=== PATIENT | male | born 1970 | race Caucasian/White ===

== ENCOUNTER → 2016-12-19 | Outpatient (REF) | payer MEDICARE, OTHER ==
[~2016-12-19] MED LIST: /TAMS4CA; BENI20TA11; HYDR25TA6; VICO5TAB
== END ==
LOC: M LAB REF 13:16
PROVIDERS: ATTEND Internal Medicine Nephrology
DX: R80.9 Proteinuria, unspecified (principal)

== ENCOUNTER → 2017-07-01 | Outpatient (REF) | payer MEDICARE, OTHER ==
[2017-07-01 14:07] LABS: CREATININE,RANDOM URINE 33.2 MG/DL
[2017-07-01 14:07] LABS: TOTAL PROTEIN,RANDOM URINE 31.1 MG/DL (0.0-12.0)
== END ==
LOC: M LAB REF 12:55
DX: R80.9 Proteinuria, unspecified (principal)
CPT/HCPCS: 82570

== ENCOUNTER → 2017-11-11 | Outpatient (CLI) | payer MEDICARE, BC, OTHER ==
[2017-11-11 14:13] LABS: ESTIMATED AVERAGE GLUCOSE 103 MG/DL (60-110); HEMOGLOBIN A1c 5.2 %
[2017-11-11 14:21] LABS: ALBUMIN 3.5 GM/DL (3.2-5.2); ALBUMIN/GLOBULIN RATIO 1.09 (1.00-1.93); ALKALINE PHOSPHATASE 69 U/L (45-117); ALT/SGPT 44 U/L (12-78); ANION GAP 6 MEQ/L (8-16); AST/SGOT 34 U/L (7-37); BILIRUBIN,TOTAL 0.7 MG/DL (0.2-1.0); BLOOD UREA NITROGEN 13 MG/DL (7-18); CALCIUM LEVEL 8.9 MG/DL (8.5-10.1); CARBON DIOXIDE LEVEL 31 MEQ/L (21-32); CHLORIDE LEVEL 106 MEQ/L (98-107); CHOLESTEROL LEVEL 181 MG/DL (<200); CHOLESTEROL RISK RATIO 3.067 (<5); CREATININE FOR GFR 0.86 MG/DL (0.70-1.30); GLOMERULAR FILTRATION RATE > 60.0 (>60); GLUCOSE, FASTING 91 MG/DL (70-100); HDL CHOLESTEROL 59 MG/DL (>40); LDL CHOLESTEROL 96.8 MG/DL (<100); NON-HDL-C 122 MG/DL; POTASSIUM SERUM 4.8 MEQ/L (3.5-5.1); SODIUM LEVEL 143 MEQ/L (136-145); TOTAL PROTEIN 6.7 GM/DL (6.4-8.2); TRIGLYCERIDES LEVEL 126 MG/DL (<150)
[2017-11-11 15:09] LABS: CREATININE, URINE 57.9 MG/DL; MAU/CREAT RATIO 856.6 MCG/MG (0.0-30.0)
== END ==
LOC: M SMT 08:52
DX: E11.9 Type 2 diabetes mellitus without complications (principal); E78.2 Mixed hyperlipidemia; R80.1 Persistent proteinuria, unspecified
CPT/HCPCS: 80053

== ENCOUNTER → 2017-12-18 | Outpatient (CLI) | payer MEDICARE, BC, OTHER | LOC: M RAD 09:51 | DX: I72.1 Aneurysm of artery of upper extremity (principal); M85.432 Solitary bone cyst, left ulna and radius | CPT/HCPCS: 93931 ==

== ENCOUNTER → 2018-01-06 | Outpatient (REF) | payer MEDICARE, BC, OTHER ==
[2018-01-06 13:38] LABS: TOTAL PROTEIN,RANDOM URINE 26.4 MG/DL (0.0-12.0)
== END ==
LOC: M LAB REF 13:09
DX: R80.9 Proteinuria, unspecified (principal)
CPT/HCPCS: 84156

== ENCOUNTER → 2018-05-04 | Outpatient (CLI) | payer MEDICARE, BC, OTHER ==
[2018-05-04 14:13] LABS: HEMATOCRIT 45.4 % (42.0-52.0); HEMOGLOBIN 15.4 g/dl (13.5-17.5); MEAN CORPUSCULAR HEMOGLOBIN 30.1 pg (27.0-33.0); MEAN CORPUSCULAR HGB CONC 33.9 g/dl (32.0-36.5); MEAN CORPUSCULAR VOLUME 88.8 fl (80.0-96.0); PLATELET COUNT, AUTOMATED 286 10^3/uL (150-450); RED BLOOD COUNT 5.11 10^6/uL (4.30-6.10); RED CELL DISTRIBUTION WIDTH 11.9 % (11.5-14.5); WHITE BLOOD COUNT 6.6 10^3/uL (4.0-10.0)
[2018-05-04 14:35] LABS: ALBUMIN/GLOBULIN RATIO 1.33 (1.00-1.93); ALKALINE PHOSPHATASE 67 U/L (45-117); ALT/SGPT 62 U/L (12-78); ANION GAP 6 MEQ/L (8-16); AST/SGOT 38 U/L (7-37); BILIRUBIN,TOTAL 0.7 MG/DL (0.2-1.0); BLOOD UREA NITROGEN 23 MG/DL (7-18); CALCIUM LEVEL 9.3 MG/DL (8.5-10.1); CARBON DIOXIDE LEVEL 28 MEQ/L (21-32); CHLORIDE LEVEL 104 MEQ/L (98-107); CREATININE FOR GFR 0.96 MG/DL (0.70-1.30); FERRITIN 164 NG/ML (26-388); GLOMERULAR FILTRATION RATE > 60.0 (>60); GLUCOSE, FASTING 94 MG/DL (70-100); POTASSIUM SERUM 4.7 MEQ/L (3.5-5.1); SODIUM LEVEL 138 MEQ/L (136-145)
[2018-05-04 14:37] LABS: TOTAL 25(OH) VITAMIN D 45.7 NG/ML (30.0-100.0); VITAMIN B12 LEVEL > 2000 PG/ML (247-911)
[2018-05-04 15:45] LABS: MAU/CREAT RATIO 420.1 MCG/MG (0.0-30.0)
[2018-05-04 19:23] LABS: ESTIMATED AVERAGE GLUCOSE 91 MG/DL (60-110); HEMOGLOBIN A1c 4.8 %
== END ==
LOC: M SMT 08:36
DX: Z98.84 Bariatric surgery status (principal); R80.1 Persistent proteinuria, unspecified; E11.9 Type 2 diabetes mellitus without complications
CPT/HCPCS: 82607

== ENCOUNTER → 2018-07-07 | Outpatient (REF) | payer MEDICARE, OTHER | LOC: M LAB REF 12:58 | PROVIDERS: ATTEND Internal Medicine Nephrology | DX: R80.9 Proteinuria, unspecified (principal) ==

== ENCOUNTER → 2019-01-06 | Outpatient (REF) | payer MEDICARE, OTHER ==
[~2019-01-06] MED LIST changes: -/TAMS4CA; +FLOM0.4C39
== END ==
LOC: M LAB REF 13:07
PROVIDERS: ATTEND Internal Medicine Nephrology
DX: R80.9 Proteinuria, unspecified (principal)

== ENCOUNTER → 2019-05-04 | Outpatient (REF) | payer MEDICARE, OTHER ==
[2019-05-04 17:07] LABS: HEMOGLOBIN 15.4 g/dl (13.5-17.5); MEAN CORPUSCULAR HEMOGLOBIN 30.9 pg (27.0-33.0); MEAN CORPUSCULAR HGB CONC 33.5 g/dl (32.0-36.5); MEAN CORPUSCULAR VOLUME 92.4 fl (80.0-96.0); PLATELET COUNT, AUTOMATED 299 10^3/uL (150-450); RED BLOOD COUNT 4.98 10^6/uL (4.30-6.10); WHITE BLOOD COUNT 6.1 10^3/uL (4.0-10.0)
[2019-05-04 17:23] LABS: ALBUMIN 3.8 GM/DL (3.2-5.2); ALT/SGPT 40 U/L (12-78); BILIRUBIN,TOTAL 0.6 MG/DL (0.2-1.0); BLOOD UREA NITROGEN 18 MG/DL (7-18); CALCIUM LEVEL 8.9 MG/DL (8.5-10.1); CARBON DIOXIDE LEVEL 29 MEQ/L (21-32); CHLORIDE LEVEL 103 MEQ/L (98-107); CHOLESTEROL LEVEL 226 MG/DL (<200); CHOLESTEROL RISK RATIO 3.183 (<5); CREATININE FOR GFR 0.96 MG/DL (0.70-1.30); FERRITIN 100 NG/ML (26-388); GLOMERULAR FILTRATION RATE > 60.0 (>56); GLUCOSE, FASTING 81 MG/DL (70-100); HDL CHOLESTEROL 71 MG/DL (>40); LDL CHOLESTEROL 106 MG/DL (<100); NON-HDL-C 155 MG/DL; POTASSIUM SERUM 5.2 MEQ/L (3.5-5.1); SODIUM LEVEL 138 MEQ/L (136-145); TRIGLYCERIDES LEVEL 243 MG/DL (<150)
[2019-05-04 17:24] LABS: TOTAL 25(OH) VITAMIN D 27.7 NG/ML (30.0-100.0); VITAMIN B12 LEVEL > 2000 PG/ML (247-911)
[2019-05-04 17:29] LABS: HEMOGLOBIN A1c 5.1 %
[2019-05-04 17:47] LABS: CREATININE, URINE 17.4 MG/DL; MAU/CREAT RATIO 1459.7 MCG/MG (0.0-30.0)
== END ==
LOC: M SFHCADAM 13:13
PROVIDERS: ATTEND Family Medicine
DX: E11.9 Type 2 diabetes mellitus without complications (principal); E78.2 Mixed hyperlipidemia; R80.1 Persistent proteinuria, unspecified; D51.9 Vitamin B12 deficiency anemia, unspecified; Z98.84 Bariatric surgery status
CPT/HCPCS: 80053; 80061; 82043; 82306; 82607; 82728; 83036; 85027; G0463

== ENCOUNTER → 2020-01-07 | Outpatient (REF) | payer MEDICARE, OTHER | LOC: M LAB REF 17:46 | PROVIDERS: ATTEND Internal Medicine Nephrology | DX: R80.9 Proteinuria, unspecified (principal) ==

== ENCOUNTER 2020-04-21 10:03 | Emergency (ER) | payer OTHER, MEDICARE, BC ==
[~2020-04-21] VITALS: Ht 185.4 cm; Wt 97.7 kg
[2020-04-21] MEDS ORDERED: LIDOCAINE W/EPINEPHRINE 1% 20ML VIAL SC ONE (10:45)
[2020-04-21] MEDS ORDERED: BOOSTRIX/ADACEL VACCINE (DIPHTH/PERTUSS/ACELL/TETANUS) 0.5ML SYR IM ONE (10:45)
[2020-04-21] MEDS ORDERED: DERMABOND TOPICAL SKIN ADHESIVE TOP ONE (10:45)
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
[2020-04-21] MEDS ORDERED: KETOROLAC 30 MG/ML 1ML VIAL IM ONE (12:15)
[2020-04-21] MEDS ORDERED: KETOROLAC 30 MG/ML 1ML VIAL IV ONE (12:30)
--- NOTE | 2020-04-21 13:08 | REP ---
INDICATION: pain COMPARISON: None. TECHNIQUE: Five views obtained. FINDINGS: Five views of the right knee demonstrate no evidence of acute fracture, dislocation, or intrinsic bone disease. IMPRESSION: No fracture or dislocation. <Electronically signed by Greg Ruff > 04/21/20 [id number]
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
[2020-04-21 13:44] VITALS: BP 175/91
== END 2020-04-21 13:41 | disposition home or self-care (01) ==
LOC: M ED 10:03
DX: S20.219A Contusion of unspecified front wall of thorax, initial encounter (principal); S01.511A Laceration without foreign body of lip, initial encounter; S51.812A Laceration without foreign body of left forearm, initial encounter; S80.811A Abrasion, right lower leg, initial encounter; S80.812A Abrasion, left lower leg, initial encounter; M79.601 Pain in right arm; V47.0XXA Car driver injured in collision with fixed or stationary object in nontraffic accident, initial encounter; M50.30 Other cervical disc degeneration, unspecified cervical region; K57.30 Diverticulosis of large intestine without perforation or abscess without bleeding; E11.9 Type 2 diabetes mellitus without complications; I10 Essential (primary) hypertension; E78.5 Hyperlipidemia, unspecified; G47.30 Sleep apnea, unspecified; Z98.84 Bariatric surgery status; Z91.041 Radiographic dye allergy status; Z79.899 Other long term (current) drug therapy
CPT/HCPCS: 12001; 12011; 70450; 71250; 72125; 73090; 73564; 74176; 80047; 90471; 90715; 96372; 96374; 99284; J1885

== ENCOUNTER → 2020-07-19 | Outpatient (REF) | payer MEDICARE, OTHER ==
[2020-07-19 18:01] LABS: HEMATOCRIT 46.8 % (42.0-52.0); HEMOGLOBIN 15.3 g/dl (13.5-17.5); MEAN CORPUSCULAR HEMOGLOBIN 29.3 pg (27.0-33.0); MEAN CORPUSCULAR HGB CONC 32.7 g/dl (32.0-36.5); MEAN CORPUSCULAR VOLUME 89.5 fl (80.0-96.0); PLATELET COUNT, AUTOMATED 343 10^3/uL (150-450); RED BLOOD COUNT 5.23 10^6/uL (4.30-6.10); WHITE BLOOD COUNT 7.4 10^3/uL (4.0-10.0)
[2020-07-19 18:09] LABS: ALT/SGPT 56 U/L (12-78); BILIRUBIN,TOTAL 0.5 MG/DL (0.2-1.0); BLOOD UREA NITROGEN 19 MG/DL (7-18); CALCIUM LEVEL 9.6 MG/DL (8.5-10.1); CARBON DIOXIDE LEVEL 29 MEQ/L (21-32); CHLORIDE LEVEL 104 MEQ/L (98-107); CHOLESTEROL LEVEL 210 MG/DL (<200); CHOLESTEROL RISK RATIO 3.387 (<5); CREATININE FOR GFR 0.94 MG/DL (0.70-1.30); FERRITIN 114 NG/ML (26-388); GLOMERULAR FILTRATION RATE > 60.0 (>56); GLUCOSE, FASTING 88 MG/DL (70-100); HDL CHOLESTEROL 62 MG/DL (>40); LDL CHOLESTEROL 110 MG/DL (<100); NON-HDL-C 148 MG/DL; POTASSIUM SERUM 5.1 MEQ/L (3.5-5.1); SODIUM LEVEL 139 MEQ/L (136-145); TOTAL PROTEIN 7.3 GM/DL (6.4-8.2); TRIGLYCERIDES LEVEL 188 MG/DL (<150)
[2020-07-19 18:18] LABS: TOTAL 25(OH) VITAMIN D 28.9 NG/ML (30.0-100.0); VITAMIN B12 LEVEL 1199 PG/ML (247-911)
[2020-07-19 18:37] LABS: HEMOGLOBIN A1c 5.2 %
[2020-07-19 19:05] LABS: CREATININE, URINE 36.2 MG/DL; MAU/CREAT RATIO 881.2 MCG/MG (0.0-30.0)
== END ==
LOC: M SFHCADAM 13:56
PROVIDERS: ATTEND Family Medicine
DX: Z98.84 Bariatric surgery status (principal); D51.9 Vitamin B12 deficiency anemia, unspecified; E11.9 Type 2 diabetes mellitus without complications; E78.2 Mixed hyperlipidemia; R80.1 Persistent proteinuria, unspecified

== ENCOUNTER → 2021-07-18 | Outpatient (REF) | payer MEDICARE, OTHER ==
[2021-07-18 13:05] LABS: HEMATOCRIT 44.6 % (42.0-52.0); HEMOGLOBIN 14.9 g/dl (13.5-17.5); MEAN CORPUSCULAR HEMOGLOBIN 30.2 pg (27.0-33.0); MEAN CORPUSCULAR HGB CONC 33.4 g/dl (32.0-36.5); MEAN CORPUSCULAR VOLUME 90.5 fl (80.0-96.0); PLATELET COUNT, AUTOMATED 267 10^3/uL (150-450); RED BLOOD COUNT 4.93 10^6/uL (4.30-6.10); WHITE BLOOD COUNT 6.8 10^3/uL (4.0-10.0)
[2021-07-18 14:57] LABS: ALT/SGPT 41 U/L (12-78); BILIRUBIN,TOTAL 0.5 MG/DL (0.2-1.0); BLOOD UREA NITROGEN 22 MG/DL (7-18); CALCIUM LEVEL 9.1 MG/DL (8.5-10.1); CARBON DIOXIDE LEVEL 29 MEQ/L (21-32); CHLORIDE LEVEL 108 MEQ/L (98-107); CHOLESTEROL LEVEL 208 MG/DL (<200); CHOLESTEROL RISK RATIO 3.851 (<5); CREATININE FOR GFR 0.97 MG/DL (0.70-1.30); FREE T4 0.91 NG/DL (0.76-1.46); GLOMERULAR FILTRATION RATE > 60.0 (>56); GLUCOSE, FASTING 93 MG/DL (70-100); HDL CHOLESTEROL 54 MG/DL (>40); LDL CHOLESTEROL 128 MG/DL (<100); NON-HDL-C 154 MG/DL; POTASSIUM SERUM 5.1 MEQ/L (3.5-5.1); SODIUM LEVEL 140 MEQ/L (136-145); TOTAL 25(OH) VITAMIN D 23.4 NG/ML (30.0-100.0); TRIGLYCERIDES LEVEL 132 MG/DL (<150); VITAMIN B12 LEVEL 1570 PG/ML (247-911)
[2021-07-18 15:27] LABS: HEMOGLOBIN A1c 5.2 %
[2021-07-18 15:44] LABS: MAU/CREAT RATIO 487.3 MCG/MG (0.0-30.0)
== END ==
LOC: M SFHCADAM 08:54
PROVIDERS: ATTEND Family Medicine
DX: R80.1 Persistent proteinuria, unspecified (principal); E11.9 Type 2 diabetes mellitus without complications; E78.2 Mixed hyperlipidemia; D51.9 Vitamin B12 deficiency anemia, unspecified; Z98.84 Bariatric surgery status; Z12.5 Encounter for screening for malignant neoplasm of prostate; Z79.899 Other long term (current) drug therapy

== ENCOUNTER → 2021-07-18 | Outpatient (CLI) | payer MEDICARE, OTHER | LOC: M ADAMS 09:04 | PROVIDERS: ATTEND Family Medicine | DX: M50.322 Other cervical disc degeneration at C5-C6 level (principal); M50.323 Other cervical disc degeneration at C6-C7 level ==

== ENCOUNTER 2021-12-20 00:33 | Emergency (ER) | payer MEDICARE, OTHER ==
[~2021-12-20] VITALS: Ht 185.4 cm; Wt 98.6 kg
[2021-12-20] MEDS ORDERED: LISI40TA4 PO (00:37)
[2021-12-20 00:51] LABS: BASO # 0.1 10^3/uL (0.0-0.2); BASO % 0.6 % (0.0-1.0); EOS # 0.3 10^3/uL (0.0-0.5); EOS % 3.4 % (0.0-3.0); HEMATOCRIT 44.3 % (42.0-52.0); HEMOGLOBIN 15.4 g/dl (13.5-17.5); LYMPH # 2.2 10^3/uL (1.5-5.0); MEAN CORPUSCULAR HEMOGLOBIN 31.4 pg (27.0-33.0); MEAN CORPUSCULAR HGB CONC 34.8 g/dl (32.0-36.5); MEAN CORPUSCULAR VOLUME 90.4 fl (80.0-96.0); MONO # 1.4 10^3/uL (0.0-0.8); NEUTROPHILS # 4.3 10^3/uL (1.5-8.5); NEUTROPHILS % 51.6 % (36.0-66.0); PLATELET COUNT, AUTOMATED 275 10^3/uL (150-450); WHITE BLOOD COUNT 8.3 10^3/uL (4.0-10.0)
[2021-12-20] MEDS ORDERED: DIGOXIN INJ 0.5 MG/2 ML AMP (J1160) IV ONE (01:10)
[2021-12-20] MEDS ORDERED: atenoloL 25 MG TAB PO ONE (01:20)
[2021-12-20 01:23] LABS: CK-MB VALUE MASS 1.5 NG/ML (<3.6); MB/CK RELATIVE INDEX 1.1 (< OR =4)
[2021-12-20 01:30] LABS: BLOOD UREA NITROGEN 19 MG/DL (7-18); CARBON DIOXIDE LEVEL 26 MEQ/L (21-32); CHLORIDE LEVEL 108 MEQ/L (98-107); CREATININE FOR GFR 0.89 MG/DL (0.70-1.30); FREE T4 0.97 NG/DL (0.76-1.46); GLOMERULAR FILTRATION RATE > 60.0 (>56); GLUCOSE, FASTING 94 MG/DL (70-100); POTASSIUM SERUM 4.1 MEQ/L (3.5-5.1); SODIUM LEVEL 143 MEQ/L (136-145)
[2021-12-20 01:48] VITALS: BP 133/70
[2021-12-20 01:54] LABS: MAGNESIUM LEVEL 2.2 MG/DL (1.8-2.4)
[2021-12-20] MEDS ORDERED: DIGOXIN 0.25 MG TAB PO ONE (03:00)
[2021-12-20 03:55] LABS: CK-MB VALUE MASS 1.3 NG/ML (<3.6); MB/CK RELATIVE INDEX 1.12 (< OR =4)
[2021-12-20] MEDS ORDERED: ATEN25TA PO (04:24)
[2021-12-20] MEDS ORDERED: ASPI-255 PO (04:24)
[2021-12-20 04:30] VITALS: BP 112/64
== END 2021-12-20 05:03 | disposition home or self-care (01) ==
LOC: M ED 00:33
DX: I48.91 Unspecified atrial fibrillation (principal); R94.31 Abnormal electrocardiogram [ECG] [EKG]; E11.9 Type 2 diabetes mellitus without complications; E78.5 Hyperlipidemia, unspecified; I10 Essential (primary) hypertension; F10.10 Alcohol abuse, uncomplicated; Z79.811 Long term (current) use of aromatase inhibitors; Z98.84 Bariatric surgery status; Z91.041 Radiographic dye allergy status; Z79.899 Other long term (current) drug therapy
CPT/HCPCS: 71045; 80048; 82550; 82553; 83735; 84439; 84443; 84484; 85025; 93005; 93041; 94760; 96374; 96375; 99291; 99292; J1160

== ENCOUNTER → 2022-01-23 | Outpatient (REF) | payer MEDICARE, BC, OTHER ==
[~2022-01-23] MED LIST changes: +ASPI-255 PO; +ATEN25TA PO; +LISI40TA4 PO
[2022-01-23 18:07] LABS: TOTAL PROTEIN,RANDOM URINE 112.1 MG/DL (0.0-12.0)
== END ==
LOC: M LAB REF 16:53
PROVIDERS: ATTEND Nurse Practitioner Family
DX: R80.9 Proteinuria, unspecified (principal)

== ENCOUNTER → 2022-05-16 | Outpatient (CLI) | payer MEDICARE, BC, OTHER ==
[2022-05-16 13:27] LABS: HEMATOCRIT 44.5 % (42.0-52.0); HEMOGLOBIN 14.6 g/dl (13.5-17.5); MEAN CORPUSCULAR HEMOGLOBIN 30.5 pg (27.0-33.0); MEAN CORPUSCULAR HGB CONC 32.8 g/dl (32.0-36.5); MEAN CORPUSCULAR VOLUME 93.1 fl (80.0-96.0); PLATELET COUNT, AUTOMATED 292 10^3/uL (150-450); RED BLOOD COUNT 4.78 10^6/uL (4.30-6.10); WHITE BLOOD COUNT 7.9 10^3/uL (4.0-10.0)
[2022-05-16 13:48] LABS: BLOOD UREA NITROGEN 16 MG/DL (9-23); CALCIUM LEVEL 9.4 MG/DL (8.5-10.1); CARBON DIOXIDE LEVEL 30 MMOL/L (20-31); CHLORIDE LEVEL 105 MMOL/L (98-107); CREATININE FOR GFR 0.94 MG/DL (0.70-1.30); GLOMERULAR FILTRATION RATE > 60.0 (>56); GLUCOSE, FASTING 96 MG/DL (60-100); POTASSIUM SERUM 5.2 MMOL/L (3.5-5.1); SODIUM LEVEL 139 MMOL/L (136-145)
== END ==
LOC: M PLALAB 10:43
PROVIDERS: ATTEND Internal Medicine Cardiovascular Disease
DX: I48.0 Paroxysmal atrial fibrillation (principal)

== ENCOUNTER 2022-06-05 01:22 | Emergency (ER) | payer MEDICARE, BC, OTHER ==
[~2022-06-05] VITALS: Ht 185.4 cm; Wt 102.2 kg
[2022-06-05 02:00] LABS: BASO % 0.3 % (0.0-1.0); EOS # 0.3 10^3/uL (0.0-0.5); EOS % 2.7 % (0.0-3.0); HEMATOCRIT 40.5 % (42.0-52.0); HEMOGLOBIN 13.4 g/dl (13.5-17.5); LYMPH % 21.4 % (24.0-44.0); MEAN CORPUSCULAR HEMOGLOBIN 30.3 pg (27.0-33.0); MEAN CORPUSCULAR HGB CONC 33.1 g/dl (32.0-36.5); MEAN CORPUSCULAR VOLUME 91.6 fl (80.0-96.0); MONO # 1.5 10^3/uL (0.0-0.8); MONO % 15.9 % (2.0-8.0); NEUTROPHILS # 5.5 10^3/uL (1.5-8.5); NEUTROPHILS % 59.5 % (36.0-66.0); PLATELET COUNT, AUTOMATED 230 10^3/uL (150-450); RED BLOOD COUNT 4.42 10^6/uL (4.30-6.10); WHITE BLOOD COUNT 9.3 10^3/uL (4.0-10.0)
[2022-06-05] MEDS ORDERED: GI COCKTAIL 50ML BTL(HYOSCYAMINE/MAALOX/LIDOCAINE VISCOUS)(1:3:1) PO ONE (02:05)
[2022-06-05 02:18] LABS: ERYTHROCYTE SEDIMENTATION RATE 12 mm/hr (0-20)
[2022-06-05 02:24] LABS: LIPASE 61 U/L (12-53)
[2022-06-05 02:26] LABS: ALBUMIN 3.5 G/DL (3.2-5.2); ALKALINE PHOSPHATASE 77 U/L (46-116); ALT/SGPT 23 U/L (7.0-40); AST/SGOT 33 U/L (<34); BILIRUBIN,DIRECT 0.1 MG/DL (<0.4); BILIRUBIN,TOTAL 0.4 MG/DL (0.3-1.2); BLOOD UREA NITROGEN 11 MG/DL (9-23); CALCIUM LEVEL 8.3 MG/DL (8.5-10.1); CARBON DIOXIDE LEVEL 27 MMOL/L (20-31); CHLORIDE LEVEL 105 MMOL/L (98-107); CK-MB VALUE MASS 3.3 NG/ML (<3.6); CPK CREATINE PHOSPHOKINASE 169 U/L (46-171); CREATININE FOR GFR 0.83 MG/DL (0.70-1.30); GLOMERULAR FILTRATION RATE > 60.0 (>56); GLUCOSE, FASTING 103 MG/DL (60-100); MB/CK RELATIVE INDEX 1.95 (< OR =4); SODIUM LEVEL 140 MMOL/L (136-145); TOTAL PROTEIN 6.4 G/DL (5.7-8.2)
[2022-06-05 02:28] LABS: THYROID STIMULATING HORMONE 1.966 uIU/ML (0.55-4.78)
[2022-06-05 04:00] VITALS: BP 148/94
[2022-06-05 04:02] LABS: CK-MB VALUE MASS 2.6 NG/ML (<3.6)
[2022-06-05 04:14] LABS: MB/CK RELATIVE INDEX 1.61 (< OR =4)
[2022-06-05] MEDS ORDERED: SUCRALFATE SUSP 1GM/10ML UD PO ONE (05:30)
[2022-06-05 06:39] LABS: CK-MB VALUE MASS 1.9 NG/ML (<3.6)
[2022-06-05 06:40] LABS: MB/CK RELATIVE INDEX 1.34 (< OR =4)
[2022-06-05] MEDS ORDERED: OMEP40CA4 PO (07:06)
[2022-06-05] MEDS ORDERED: COLCHICINE 0.6 MG TABLET PO ONE (07:25)
[2022-06-05] MEDS ORDERED: COLC0.6T47 PO (07:27)
== END 2022-06-05 08:13 | disposition home or self-care (01) ==
LOC: M ED 01:22
DX: R07.9 Chest pain, unspecified (principal); K21.9 Gastro-esophageal reflux disease without esophagitis; I25.2 Old myocardial infarction; E11.9 Type 2 diabetes mellitus without complications; E78.5 Hyperlipidemia, unspecified; F10.10 Alcohol abuse, uncomplicated; Z86.79 Personal history of other diseases of the circulatory system; Z91.041 Radiographic dye allergy status; Z79.82 Long term (current) use of aspirin; Z79.811 Long term (current) use of aromatase inhibitors; Z79.899 Other long term (current) drug therapy

== ENCOUNTER → 2022-06-17 | Outpatient (CLI) | payer MEDICARE, BC, OTHER ==
[~2022-06-17] MED LIST changes: +COLC0.6T47 PO; +OMEP40CA4 PO
== END ==
LOC: M WUC 10:28
PROVIDERS: ATTEND Physician Assistant
DX: R77.8 Other specified abnormalities of plasma proteins (principal)

== ENCOUNTER → 2022-08-06 | Outpatient (REF) | payer MEDICARE, OTHER ==
[~2022-08-06] MED LIST changes: +CEPH500C PO
[2022-08-06 13:19] LABS: ALBUMIN 3.8 G/DL (3.2-5.2); ALKALINE PHOSPHATASE 79 U/L (46-116); ALT/SGPT 22 U/L (7.0-40); AST/SGOT 27 U/L (<34); BILIRUBIN,TOTAL 0.6 MG/DL (0.3-1.2); BLOOD UREA NITROGEN 19 MG/DL (9-23); CALCIUM LEVEL 8.8 MG/DL (8.5-10.1); CARBON DIOXIDE LEVEL 31 MMOL/L (20-31); CHLORIDE LEVEL 104 MMOL/L (98-107); CHOLESTEROL LEVEL 201 MG/DL (<200); CHOLESTEROL RISK RATIO 3.35 (<5); CREATININE FOR GFR 0.81 MG/DL (0.70-1.30); GLOMERULAR FILTRATION RATE > 60.0 (>56); GLUCOSE, FASTING 94 MG/DL (60-100); LDL CHOLESTEROL 113.6 MG/DL (<100); NON-HDL-C 141 MG/DL; SODIUM LEVEL 139 MMOL/L (136-145); TOTAL PROTEIN 6.9 G/DL (5.7-8.2); TRIGLYCERIDES LEVEL 137 MG/DL (<150)
[2022-08-06 13:23] LABS: FREE T4 0.97 NG/DL (0.89-1.76); VITAMIN B12 LEVEL 603 PG/ML (211-911)
[2022-08-06 13:25] LABS: THYROID STIMULATING HORMONE 2.115 uIU/ML (0.55-4.78); TOTAL 25(OH) VITAMIN D 23.1 NG/ML (20.0-100.0)
[2022-08-06 13:26] LABS: FERRITIN 25.2 NG/ML (10.5-307.3)
[2022-08-06 13:32] LABS: HEMOGLOBIN A1c 4.9 % (4.0-6.0)
[2022-08-06 13:35] LABS: CREATININE, URINE 111.9 MG/DL; MAU/CREAT RATIO 287.7 MCG/MG (0.0-30.0)
[2022-08-06 13:36] LABS: FOLATE 21.94 NG/ML (>5.4)
[2022-08-06 19:43] LABS: BASO % 0.6 % (0.0-1.0); EOS # 0.3 10^3/uL (0.0-0.5); EOS % 3.6 % (0.0-3.0); HEMATOCRIT 42.9 % (42.0-52.0); HEMOGLOBIN 14.3 g/dl (13.5-17.5); LYMPH # 1.9 10^3/uL (1.5-5.0); LYMPH % 26.7 % (24.0-44.0); MEAN CORPUSCULAR HGB CONC 33.3 g/dl (32.0-36.5); MEAN CORPUSCULAR VOLUME 90.1 fl (80.0-96.0); MONO # 1.1 10^3/uL (0.0-0.8); MONO % 15.1 % (2.0-8.0); NEUTROPHILS # 3.9 10^3/uL (1.5-8.5); NEUTROPHILS % 53.7 % (36.0-66.0); PLATELET COUNT, AUTOMATED 260 10^3/uL (150-450); RED BLOOD COUNT 4.76 10^6/uL (4.30-6.10); WHITE BLOOD COUNT 7.2 10^3/uL (4.0-10.0)
== END ==
LOC: M SFHCADAM 08:20
PROVIDERS: ATTEND Family Medicine
DX: I48.91 Unspecified atrial fibrillation (principal); D51.9 Vitamin B12 deficiency anemia, unspecified; Z98.84 Bariatric surgery status; E78.2 Mixed hyperlipidemia; E11.9 Type 2 diabetes mellitus without complications; Z12.5 Encounter for screening for malignant neoplasm of prostate; I10 Essential (primary) hypertension

== ENCOUNTER 2022-09-28 15:22 | Emergency (ER) | payer MEDICARE, BC, OTHER ==
[~2022-09-28] VITALS: Ht 185.4 cm; Wt 98.2 kg
[~2022-09-28 15:22] MED LIST changes: -CEPH500C PO
[2022-09-28] MEDS ORDERED: CEPHALEXIN 500 MG CAP PO ONE (16:15)
[2022-09-28] MEDS ORDERED: LIDOCAINE 2% MDV 20ML VIAL SC ONE (16:15)
[2022-09-28] MEDS ORDERED: CEPH500C PO (17:17)
[2022-09-28 17:45] VITALS: BP 114/83
== END 2022-09-28 17:58 | disposition home or self-care (01) ==
LOC: EDBD 15:22 → M ED 15:22
DX: S91.312A Laceration without foreign body, left foot, initial encounter (principal); W29.3XXA Contact with powered garden and outdoor hand tools and machinery, initial encounter; I10 Essential (primary) hypertension; F17.200 Nicotine dependence, unspecified, uncomplicated; Z86.79 Personal history of other diseases of the circulatory system; Z79.01 Long term (current) use of anticoagulants; Z91.040 Latex allergy status; Z91.013 Allergy to seafood; Z79.82 Long term (current) use of aspirin; Z79.811 Long term (current) use of aromatase inhibitors; Z79.83 Long term (current) use of bisphosphonates

== ENCOUNTER → 2022-11-15 | Outpatient (CLI) | payer MEDICARE, BC, OTHER ==
[~2022-11-15] MED LIST changes: +AMLO2.5T3 PO; +CEPH500C PO; +CYAN500T14 PO; +ELIQ5TAB PO; +VITA-243 PO; +VITA100093 PO; +VITMTA PO
== END ==
LOC: M SLEEP 20:00
PROVIDERS: ATTEND Nurse Practitioner Adult Health
DX: G47.33 Obstructive sleep apnea (adult) (pediatric) (principal)

== ENCOUNTER 2022-11-18 07:32 | Day surgery (SDC) | payer MEDICARE, BC, OTHER ==
[~2022-11-18] VITALS: Ht 185.4 cm; Wt 98.7 kg
[~2022-11-18 07:32] MED LIST changes: +NS 1,000 ML IV ONE
[2022-11-18] MEDS ORDERED: propofoL 200 MG/20 ML VIAL As Ordered ONE (09:20)
[2022-11-18 10:04] VITALS: BP 145/79
== END 2022-11-18 10:13 | disposition home or self-care (01) ==
LOC: M OPP 07:32
PROVIDERS: ATTEND Internal Medicine Gastroenterology
DX: Z12.11 Encounter for screening for malignant neoplasm of colon (principal); D12.6 Benign neoplasm of colon, unspecified; K64.4 Residual hemorrhoidal skin tags; K64.8 Other hemorrhoids; K57.30 Diverticulosis of large intestine without perforation or abscess without bleeding; Z79.01 Long term (current) use of anticoagulants; Z79.899 Other long term (current) drug therapy; Z91.013 Allergy to seafood; Z91.041 Radiographic dye allergy status

== ENCOUNTER → 2023-02-11 | Outpatient (CLI) | payer MEDICARE, BC, OTHER ==
[~2023-02-11] MED LIST changes: -NS 1,000 ML IV ONE
== END ==
LOC: M RAD 07:14
PROVIDERS: ATTEND Nurse Practitioner Family
DX: N18.2 Chronic kidney disease, stage 2 (mild) (principal)

== ENCOUNTER → 2023-08-25 | Outpatient (REF) | payer MEDICARE, OTHER ==
[2023-08-25 13:13] LABS: BASO % 0.4 % (0.0-1.0); EOS # 0.2 10^3/uL (0.0-0.5); EOS % 2.7 % (0.0-3.0); HEMATOCRIT 41.9 % (42.0-52.0); HEMOGLOBIN 14.3 g/dl (13.5-17.5); LYMPH # 1.9 10^3/uL (1.5-5.0); LYMPH % 28.1 % (24.0-44.0); MEAN CORPUSCULAR HEMOGLOBIN 31.1 pg (27.0-33.0); MEAN CORPUSCULAR HGB CONC 34.1 g/dl (32.0-36.5); MEAN CORPUSCULAR VOLUME 91.1 fl (80.0-96.0); MONO # 0.9 10^3/uL (0.0-0.8); MONO % 13.8 % (2.0-8.0); NEUTROPHILS # 3.7 10^3/uL (1.5-8.5); NEUTROPHILS % 54.6 % (36.0-66.0); PLATELET COUNT, AUTOMATED 240 10^3/uL (150-450); WHITE BLOOD COUNT 6.7 10^3/uL (4.0-10.0)
[2023-08-25 13:28] LABS: HEMOGLOBIN A1c 5.3 % (4.0-6.0)
[2023-08-25 13:49] LABS: TOTAL 25(OH) VITAMIN D 28.8 NG/ML (20.0-100.0)
[2023-08-25 13:50] LABS: FERRITIN 23.1 NG/ML (10.5-307.3)
[2023-08-25 14:00] LABS: ALBUMIN 3.6 G/DL (3.2-5.2); ALKALINE PHOSPHATASE 61 U/L (46-116); ALT/SGPT 29 U/L (7.0-40); AST/SGOT 22 U/L (<34); BILIRUBIN,TOTAL 0.5 MG/DL (0.3-1.2); BLOOD UREA NITROGEN 20 MG/DL (9-23); CALCIUM LEVEL 8.9 MG/DL (8.5-10.1); CARBON DIOXIDE LEVEL 27 MMOL/L (20-31); CHLORIDE LEVEL 110 MMOL/L (98-107); CHOLESTEROL LEVEL 176 MG/DL (<200); CHOLESTEROL RISK RATIO 3.37 (<5); CREATININE FOR GFR 0.96 MG/DL (0.70-1.30); GLOMERULAR FILTRATION RATE > 60.0 (>56); GLUCOSE, FASTING 90 MG/DL (60-100); HDL CHOLESTEROL 52.1 MG/DL (>40); LDL CHOLESTEROL 103.5 MG/DL (<100); NON-HDL-C 123.9 MG/DL; POTASSIUM SERUM 4.4 MMOL/L (3.5-5.1); SODIUM LEVEL 140 MMOL/L (136-145); TOTAL PROTEIN 6.5 G/DL (5.7-8.2); TRIGLYCERIDES LEVEL 102 MG/DL (<150)
[2023-08-25 14:07] LABS: VITAMIN B12 LEVEL > 2000 PG/ML (211-911)
== END ==
LOC: M SFHCADAM 08:55
PROVIDERS: ATTEND Family Medicine
DX: D51.9 Vitamin B12 deficiency anemia, unspecified (principal); Z98.84 Bariatric surgery status; E78.2 Mixed hyperlipidemia; E11.9 Type 2 diabetes mellitus without complications; Z12.5 Encounter for screening for malignant neoplasm of prostate; Z79.899 Other long term (current) drug therapy
CPT/HCPCS: 80053; 80061; 82306; 82607; 82728; 83036; 85025; G0103

== ENCOUNTER → 2023-08-27 | Outpatient (REF) | payer MEDICARE, OTHER ==
[2023-08-27 14:16] LABS: THYROID STIMULATING HORMONE 2.062 uIU/ML (0.55-4.78)
[2023-08-27 14:18] LABS: FREE T4 1.01 NG/DL (0.89-1.76)
[2023-08-28 13:08] LABS: TESTOSTERONE FREE (DIRECT) 9.4 pg/mL (7.2-24.0)
== END ==
LOC: M SFHCADAM 09:18
PROVIDERS: ATTEND Family Medicine
DX: R68.82 Decreased libido (principal); Z79.899 Other long term (current) drug therapy

== ENCOUNTER → 2024-01-29 | Outpatient (REF) | payer MEDICARE, OTHER ==
[2024-01-29 18:00] LABS: TOTAL PROTEIN,RANDOM URINE 56.2 MG/DL (0.0-14.0)
[2024-01-29 18:18] LABS: CREATININE,RANDOM URINE 270.7 MG/DL
== END ==
LOC: M LAB REF 17:00
PROVIDERS: ATTEND Nurse Practitioner Family
DX: R80.9 Proteinuria, unspecified (principal)

== ENCOUNTER → 2024-02-23 | Outpatient (REF) | payer MEDICARE, BC ==
[2024-02-23 13:40] LABS: HEMOGLOBIN A1c 4.8 % (4.0-6.0)
[2024-02-23 14:02] LABS: CREATININE, URINE 117.6 MG/DL
[2024-02-23 14:03] LABS: ALBUMIN 3.8 G/DL (3.2-5.2); ALKALINE PHOSPHATASE 78 U/L (46-116); ALT/SGPT 34 U/L (7.0-40); AST/SGOT 23 U/L (<34); BILIRUBIN,TOTAL 0.8 MG/DL (0.3-1.2); BLOOD UREA NITROGEN 18 MG/DL (9-23); CALCIUM LEVEL 9.2 MG/DL (8.5-10.1); CARBON DIOXIDE LEVEL 28 MMOL/L (20-31); CHLORIDE LEVEL 104 MMOL/L (98-107); CREATININE FOR GFR 0.92 MG/DL (0.70-1.30); GLOMERULAR FILTRATION RATE > 60.0 (>56); GLUCOSE, FASTING 85 MG/DL (60-100); POTASSIUM SERUM 4.3 MMOL/L (3.5-5.1); SODIUM LEVEL 137 MMOL/L (136-145)
== END ==
LOC: M SFHCADAM 09:03
PROVIDERS: ATTEND Family Medicine
DX: E11.9 Type 2 diabetes mellitus without complications (principal)

== ENCOUNTER → 2024-08-12 | Outpatient (CLI) | payer OTHER, MEDICARE, BC ==
[~2024-08-12] MED LIST changes: +PROHANCE 279.3MG/ML 15ML VIAL ONE; +PROHANCE 279.3MG/ML 5ML VIAL ONE
== END ==
LOC: M PLAIMG 13:39
PROVIDERS: ATTEND Family Medicine
DX: M54.12 Radiculopathy, cervical region (principal)

== ENCOUNTER → 2024-09-08 | Outpatient (CLI) | payer MEDICARE, BC ==
[~2024-09-08] MED LIST changes: -PROHANCE 279.3MG/ML 15ML VIAL ONE; -PROHANCE 279.3MG/ML 5ML VIAL ONE
== END ==
LOC: M PLAIMG 09:22
PROVIDERS: ATTEND Physician Assistant Medical
DX: J32.9 Chronic sinusitis, unspecified (principal); J34.2 Deviated nasal septum

== ENCOUNTER → 2024-10-06 | Outpatient (CLI) | payer MEDICARE, BC ==
[2024-10-06 13:19] LABS: HEMATOCRIT 40.2 % (42.0-52.0); HEMOGLOBIN 13.4 g/dl (13.5-17.5); MEAN CORPUSCULAR HEMOGLOBIN 30.2 pg (27.0-33.0); MEAN CORPUSCULAR HGB CONC 33.3 g/dl (32.0-36.5); MEAN CORPUSCULAR VOLUME 90.5 fl (80.0-96.0); PLATELET COUNT, AUTOMATED 345 10^3/uL (150-450); RED BLOOD COUNT 4.44 10^6/uL (4.30-6.10); WHITE BLOOD COUNT 7.8 10^3/uL (4.0-10.0)
[2024-10-06 13:26] LABS: FERRITIN 34.7 NG/ML (10.5-307.3)
[2024-10-06 13:27] LABS: TOTAL 25(OH) VITAMIN D 31.9 NG/ML (20.0-100.0); VITAMIN B12 LEVEL 1055 PG/ML (211-911)
[2024-10-06 13:31] LABS: HEMOGLOBIN A1c 4.6 % (4.0-6.0)
[2024-10-06 13:34] LABS: ALBUMIN 3.5 G/DL (3.2-5.2); ALKALINE PHOSPHATASE 101 U/L (40-129); ALT/SGPT 57 U/L (7.0-40); AST/SGOT 27 U/L (<34); BILIRUBIN,TOTAL 0.4 MG/DL (0.3-1.2); BLOOD UREA NITROGEN 18 MG/DL (9-23); CALCIUM LEVEL 8.9 MG/DL (8.5-10.1); CARBON DIOXIDE LEVEL 27 MMOL/L (20-31); CHLORIDE LEVEL 107 MMOL/L (98-107); CHOLESTEROL LEVEL 164 MG/DL (<200); CREATININE FOR GFR 0.84 MG/DL (0.70-1.30); GLOMERULAR FILTRATION RATE > 90.0 (>56); GLUCOSE, FASTING 89 MG/DL (60-100); HDL CHOLESTEROL 56.5 MG/DL (>40); LDL CHOLESTEROL 83.9 MG/DL (<100); NON-HDL-C 107.5 MG/DL; POTASSIUM SERUM 5.3 MMOL/L (3.5-5.1); SODIUM LEVEL 139 MMOL/L (136-145); TOTAL PROTEIN 6.4 G/DL (5.7-8.2); TRIGLYCERIDES LEVEL 118 MG/DL (<150)
== END ==
LOC: M PLALAB 11:22
PROVIDERS: ATTEND Family Medicine
DX: E11.9 Type 2 diabetes mellitus without complications (principal); K76.0 Fatty (change of) liver, not elsewhere classified; E78.2 Mixed hyperlipidemia; D51.9 Vitamin B12 deficiency anemia, unspecified; Z98.84 Bariatric surgery status; Z79.899 Other long term (current) drug therapy

== ENCOUNTER → 2025-02-03 | Outpatient (REF) | payer MEDICARE, BC ==
[~2025-02-03] MED LIST changes: +LISI40TA10 PO; -LISI40TA4 PO
[2025-02-04 15:36] LABS: TOTAL PROTEIN,RANDOM URINE 64.0 MG/DL (0.0-14.0)
== END ==
LOC: M LAB REF 17:03
PROVIDERS: ATTEND Nurse Practitioner Family
DX: R80.9 Proteinuria, unspecified (principal)

== ENCOUNTER 2025-03-17 15:06 | Observation (INO) | payer MEDICARE, BC ==
[~2025-03-17] VITALS: Ht 185.4 cm; Wt 94.9 kg
[2025-03-17] MEDS: dexAMETHasone 4 MG/ML 1 ML VIAL IV ONE (12:20)
[2025-03-17] MEDS: EPINEPHrine 1 MG/ML INJ 30 ML MD-VIAL As Ordered ONE (12:52)
[2025-03-17] MEDS: LIDOCAINE W/EPINEPHrine 1% 20 ML VIAL As Ordered ONE (12:52)
[2025-03-17] MEDS: METHYLENE BLUE 0.5% (5 MG/ML) 10 ML AMP As Ordered ONE (12:52)
[2025-03-17] MEDS: SODIUM CHLORIDE 0.9% NASAL GEL 15GM (AYR) As Ordered ONE (13:01)
[2025-03-17 15:00] VITALS: BP 156/97; TEMP 97.5; O2SAT 96
[~2025-03-17 15:06] MED LIST changes: +ACETAMINOPHEN 1000MG/100ML IV BAG As Ordered ONE; +ACETAMINOPHEN 325 MG TAB PO PRN; +AMLO1TAB24 PO; -COLC0.6T47 PO; +COLC0.6T53 PO; +FLUTISP; +HYDROMORPHONE HCL 0.5 MG/0.5 ML SYRINGE IV PRN; +LIDOCAINE 2% 100 MG/5 ML SDV (FOR ANES.) As Ordered ONE; +MAALOX 30 ML SUSP *UDC PO PRN; +MIDAZOLAM INJ 2 MG/2 ML VIAL As Ordered ONE; +MOM 30 ML SUSPENSION UDC PO PRN; +ONDANSETRON 4MG 2ML VIAL As Ordered ONE; +ONDANSETRON 4MG 2ML VIAL IV PRN; +PERI12LIQ; +REST0.057 OU; +ROCURONIUM BROMIDE 50MG/5ML VIAL As Ordered ONE; +SEMA2PEN SQ; +SUGAMMADEX SODIUM 200 MG/2 ML VIAL As Ordered ONE; +dexAMETHasone 4 MG/ML 1 ML VIAL As Ordered ONE; +dexmedeTOMIDine (4 MCG/ML) 200 MCG/50 ML BTL As Ordered ONE
[2025-03-17] MEDS: LR 1,000 ML IV SCH (15:23)
[2025-03-17 15:30] VITALS: BP 154/95; TEMP 97.7; O2SAT 95
[2025-03-17 16:00] VITALS: BP 154/94; TEMP 97.9; O2SAT 96
[2025-03-17 17:00] VITALS: BP 163/81; TEMP 97.9; O2SAT 95
[2025-03-17 18:00] VITALS: BP 152/71; TEMP 97.1; O2SAT 96
[2025-03-17 19:00] VITALS: BP 137/78; TEMP 97.2; O2SAT 95
[2025-03-17] MEDS: SODIUM CHLORIDE NASAL 0.65% SPRAY BTL (OCEAN) SCH (20:47)
[2025-03-17] MEDS: AUGMENTIN 875 MG TAB PO SCH (20:47)
[2025-03-17] MEDS: DOCUSATE SODIUM 100 MG CAPSULE PO SCH (20:47)
[2025-03-18 00:01] VITALS: BP 152/87; TEMP 97; O2SAT 94
[2025-03-18 03:59] VITALS: BP 138/81; TEMP 97.2; O2SAT 97
[2025-03-18 07:44] LABS: BASO # 0.0 10^3/uL (0.0-0.2); BASO % 0.3 % (0.0-1.0); EOS # 0.1 10^3/uL (0.0-0.5); EOS % 0.6 % (0.0-3.0); LYMPH # 1.9 10^3/uL (1.5-5.0); LYMPH % 13.8 % (24.0-44.0); MONO # 1.3 10^3/uL (0.0-0.8); MONO % 9.4 % (2.0-8.0); NEUTROPHILS # 10.3 10^3/uL (1.5-8.5); NEUTROPHILS % 75.6 % (36.0-66.0); PLATELET COUNT, AUTOMATED 280 10^3/uL (150-450)
[2025-03-18 08:06] LABS: CALCIUM LEVEL 8.9 MG/DL (8.5-10.1); CARBON DIOXIDE LEVEL 30 MMOL/L (20-31); CHLORIDE LEVEL 105 MMOL/L (98-107); CREATININE FOR GFR 0.86 MG/DL (0.70-1.30); GLOMERULAR FILTRATION RATE > 90.0 (>56); MAGNESIUM LEVEL 1.8 MG/DL (1.8-2.4); POTASSIUM SERUM 4.4 MMOL/L (3.5-5.1); SODIUM LEVEL 141 MMOL/L (136-145)
[2025-03-18] MEDS ORDERED: HOME MED LIST COMPLETE! XX SCH (08:20)
[2025-03-18 08:40] VITALS: BP 157/95; TEMP 97.5; O2SAT 95
[2025-03-18] MEDS: CYANOCOBALAMIN 500 MCG TAB PO SCH (08:48)
[2025-03-18] MEDS: ASCORBIC ACID 500 MG TAB PO SCH (08:48)
[2025-03-18] MEDS: VITAMIN D 1,000 INTERNATIONAL UNITS TABLET PO SCH (08:49)
[2025-03-18 08:53] VITALS: BP 157/95
== END 2025-03-18 11:55 | disposition home health service (06) ==
LOC: M SDC 15:06 → INTOOBSV 15:08 → M MSPAV 15:08
PROVIDERS: ADMIT Otolaryngology; ATTEND Otolaryngology
DX: J34.2 Deviated nasal septum (principal); J34.3 Hypertrophy of nasal turbinates; I10 Essential (primary) hypertension; K76.0 Fatty (change of) liver, not elsewhere classified; E11.9 Type 2 diabetes mellitus without complications; D51.9 Vitamin B12 deficiency anemia, unspecified; E55.9 Vitamin D deficiency, unspecified; E78.5 Hyperlipidemia, unspecified; G47.33 Obstructive sleep apnea (adult) (pediatric); Z79.899 Other long term (current) drug therapy; M54.2 Cervicalgia; Z91.041 Radiographic dye allergy status; Z91.013 Allergy to seafood
CPT/HCPCS: 30140; 30520; 36415; 80048; 83735; 85025; 88300; G0378; J0131; J0169; J1100; J2250; J2405; J3010; Q9968